=== PATIENT | female | born 1945 | race Caucasian/White ===

== ENCOUNTER 2022-11-18 17:06 | Inpatient (IN) ==
[2022-11-18] MEDS ORDERED: SODIUM CHLORIDE 0.9% 500 ML IV STA (18:14)
[2022-11-18 18:40] LABS: Basophils # 0.1 10*3/uL (0.0-0.2); Basophils % 0.9 % (0.0-0.8); Eosinophils % 0.2 % (0.00-10.9); Hematocrit 40.5 VOL% (35.7-47.0); Hemoglobin 13.4 GM/DL (12.0-16.0); Immature Granulocytes % 0.5 %; Immature Granulocytes Absolute 0.05 #; Lymphocytes # 1.2 10*3/uL (1.4-4.0); Lymphocytes % 12.3 % (21.3-54.2); Mean Corpuscular HGB Conc 33.1 GM/DL (32-36); Mean Corpuscular Volume 82.5 FL (87-102); Mean Platelet Volume 11.7 FL (9.6-12.0); Monocytes # 1.5 10*3/uL (0.11-0.8); Monocytes % 14.9 % (1.7-12.7); Neutrophils % 71.2 % (38.7-73.9); Platelet Count 253 T/CUMM (130-400); Red Blood Count 4.91 MC/CUMM (3.8-5.5); Red Cell Distribution Width 16.1 % (9.3-17.3); White Blood Count 9.7 T/CUMM (4-12)
[2022-11-18 18:47] LABS: INR 1.1; PT Patient Result 12.4 SECS (10.1-12.1)
[2022-11-18 18:57] LABS: Alanine Aminotransferase 45 U/L (13-56); Albumin 3.9 G/DL (3.4-5.0); Alkaline Phosphatase 109 U/L (45-117); Aspartate Amino Transferase 90 U/L (0-37); Bilirubin,Total < 0.39 MG/DL (0.20-1.00); Blood Urea Nitrogen 15 MG/DL (7-18); Calcium 9.1 MG/DL (8.5-10.1); Carbon Dioxide 22 MMOL/L (21-32); Chloride 101 MMOL/L (98-107); Glucose 134 MG/DL (74-106); Osmolality,Calculated 272.1 MOS/KG (273-304); Potassium 3.5 MMOL/L (3.5-5.1); Sodium 135 MMOL/L (136-145); Total Protein 7.6 G/DL (6.4-8.2)
[2022-11-18 19:00] LABS: Glucose,Urine (UA) Negative (Negative); Ketones,Urine Negative (Negative); Nitrite,Urine Negative (Negative); Protein,Urine 100 mg/dL (Negative); Urine Appearance Clear (Clear); Urine Color Yellow (Yellow); Urine pH 6.5 (4.5-8.0)
[2022-11-18 19:01] LABS: Bilirubin,Urine Negative (Negative); Blood, Urine Trace mg/dL (Negative); Urine Urobilinogen 0.2 eU/dL (<2.0)
[2022-11-18 19:02] LABS: Mucus,Urine Occasional /LPF (Occasional); RBC,Urine 1 /HPF (0-4); Squamous Epithelial Cell,Urine Occasional /HPF (0-10)
[2022-11-18 19:18] LABS: Barbiturates Screen,Urine Negative (Negative); Benzodiazepines Screen,Urine Negative (Negative); Cannabinoid Screen,Urine Negative (Negative); Opiate Screen,Urine Negative (Negative); Phencyclidine Screen,Urine Negative (Negative)
[2022-11-18 19:48] LABS: Sedimentation Rate-Westergren 67 MM/HR (0-30)
[2022-11-18] MEDS ORDERED: METOPROLOL TARTRATE 5 MG/5 ML VIAL IV STA (19:57)
[2022-11-18] MEDS ORDERED: ONDANSETRON 4 MG/2 ML VIAL IV PRN (20:22)
[2022-11-18] MEDS ORDERED: ASPIRIN 325 MG TABLET PO STA (20:22)
[2022-11-18] MEDS ORDERED: hydrALAZINE 20 MG/1 ML VIAL IV PRN (20:22)
[2022-11-18] MEDS ORDERED: SODIUM CHLORIDE 0.9% 1,000 ML IV SCH (20:30)
[2022-11-18 22:14] LABS: ABG Base Excess -0.2 MMOL/L (-2.5-2.5); ABG HCO3 24.2 MMOL/L (20-26); ABG Oxygen Saturation 93.7 % (95-100); ABG PCO2 33.6 MM HG (35-48); ABG PH 7.446 (7.35-7.45); ABG PO2 68.1 MM HG (80-95); ABG TCO2 19.9 MMOL/L (23-27)
[2022-11-19] MEDS: cefTRIAXone 1,000 MG in SODIUM CHLORIDE 0.9% 100 ML IV SCH ×2 (01:22→22:51)
[2022-11-19] MEDS: DOXYCYCLINE HYCLATE INJ 100 MG in SODIUM CHLORIDE 0.9% 100 ML IV SCH ×3 (01:23→22:47)
[2022-11-19 05:27] LABS: Basophils # 0.1 10*3/uL (0.0-0.2); Eosinophils % 0.1 % (0.00-10.9); Hematocrit 40.6 VOL% (35.7-47.0); Hemoglobin 12.8 GM/DL (12.0-16.0); Immature Granulocytes % 0.5 %; Immature Granulocytes Absolute 0.04 #; Lymphocytes # 2.1 10*3/uL (1.4-4.0); Lymphocytes % 24.6 % (21.3-54.2); Mean Corpuscular HGB Conc 31.5 GM/DL (32-36); Mean Corpuscular Volume 85.3 FL (87-102); Mean Platelet Volume 11.2 FL (9.6-12.0); Monocytes # 1.7 10*3/uL (0.11-0.8); Monocytes % 19.7 % (1.7-12.7); Neutrophils % 54.1 % (38.7-73.9); Platelet Count 245 T/CUMM (130-400); Red Blood Count 4.76 MC/CUMM (3.8-5.5); Red Cell Distribution Width 16.6 % (9.3-17.3); White Blood Count 8.6 T/CUMM (4-12)
[2022-11-19 06:01] LABS: Lymphocytes 27 % (20-55); Nucleated Red Blood Cells 2 /100 WBC (0-5); Platelet Estimate Normal; Total Cells Counted 100
[2022-11-19 06:10] LABS: Alanine Aminotransferase 43 U/L (13-56); Albumin 3.4 G/DL (3.4-5.0); Alkaline Phosphatase 94 U/L (45-117); Aspartate Amino Transferase 80 U/L (0-37); Bilirubin,Total < 0.39 MG/DL (0.20-1.00); Blood Urea Nitrogen 16 MG/DL (7-18); Calcium 8.9 MG/DL (8.5-10.1); Carbon Dioxide 22 MMOL/L (21-32); Chloride 103 MMOL/L (98-107); Glucose 89 MG/DL (74-106); Osmolality,Calculated 272.8 MOS/KG (273-304); Potassium 3.1 MMOL/L (3.5-5.1); Sodium 137 MMOL/L (136-145); Total Protein 7.8 G/DL (6.4-8.2)
[2022-11-19] MEDS ORDERED: POTASSIUM CHLORIDE 20 MEQ TABLET PO ONE ×3 (06:29→12:00)
[2022-11-19] MEDS: ACETAMINOPHEN 325 MG TABLET PO PRN (08:18)
[2022-11-19] MEDS: CHOLECALCIFEROL 1,000 UNIT TABLET PO SCH (08:20)
[2022-11-19] MEDS: LEVOTHYROXINE 50 MCG TABLET PO SCH (08:20)
[2022-11-19] MEDS: PANTOPRAZOLE 40 MG TABLET PO SCH (08:20)
[2022-11-19] MEDS: AMITRIPTYLINE 25 MG TABLET PO SCH ×2 (08:27→21:35)
[2022-11-19] MEDS: allopurinoL 100 MG TABLET PO SCH ×2 (08:27→21:35)
[2022-11-19] MEDS: MULTIVITAMIN (BEROCCA) TABLET PO SCH (08:28)
[2022-11-19] MEDS: ENOXAPARIN 40 MG/0.4 ML SYRINGE SUBCUT SCH (08:28)
[2022-11-19] MEDS ORDERED: amLODIPine 5 MG TABLET PO SCH (09:00)
[2022-11-19] MEDS ORDERED: ACETAMINOPHEN 325 MG TABLET PO ONE (18:06)
[2022-11-19] MEDS: DOCUSATE SODIUM 100 MG CAPSULE PO SCH (21:35)
[2022-11-19] MEDS: ASPIRIN EC 81 MG TABLET PO SCH (21:35)
[2022-11-19] MEDS: POTASSIUM CHLORIDE 10 MEQ TABLET PO SCH (21:35)
[2022-11-19] MEDS: ROSUVASTATIN 20 MG TABLET PO SCH (21:35)
[2022-11-20] MEDS: LEVOTHYROXINE 50 MCG TABLET PO SCH (06:18)
[2022-11-20] MEDS ORDERED: SODIUM CHLORIDE 0.9% 500 ML IV ONE (07:22)
[2022-11-20 08:30] LABS: Basophils # 0.1 10*3/uL (0.0-0.2); Basophils % 1.1 % (0.0-0.8); Eosinophils # 0.1 10*3/uL (0.0-0.87); Eosinophils % 0.6 % (0.00-10.9); Hematocrit 40.1 VOL% (35.7-47.0); Hemoglobin 12.8 GM/DL (12.0-16.0); Immature Granulocytes % 0.3 %; Immature Granulocytes Absolute 0.02 #; Lymphocytes # 2.1 10*3/uL (1.4-4.0); Lymphocytes % 26.7 % (21.3-54.2); Mean Corpuscular HGB Conc 31.9 GM/DL (32-36); Mean Corpuscular Volume 85.5 FL (87-102); Mean Platelet Volume 11.2 FL (9.6-12.0); Monocytes # 0.9 10*3/uL (0.11-0.8); Monocytes % 10.9 % (1.7-12.7); Neutrophils % 60.4 % (38.7-73.9); Platelet Count 183 T/CUMM (130-400); Red Blood Count 4.69 MC/CUMM (3.8-5.5); Red Cell Distribution Width 17.1 % (9.3-17.3); White Blood Count 7.97 T/CUMM (4-12)
[2022-11-20] MEDS: ENOXAPARIN 40 MG/0.4 ML SYRINGE SUBCUT SCH (08:46)
[2022-11-20] MEDS: CHOLECALCIFEROL 1,000 UNIT TABLET PO SCH (08:48)
[2022-11-20] MEDS: PANTOPRAZOLE 40 MG TABLET PO SCH (08:48)
[2022-11-20] MEDS: MULTIVITAMIN (BEROCCA) TABLET PO SCH (08:48)
[2022-11-20] MEDS: AMITRIPTYLINE 25 MG TABLET PO SCH ×2 (08:48→22:48)
[2022-11-20] MEDS: allopurinoL 100 MG TABLET PO SCH ×2 (08:48→22:48)
[2022-11-20 08:59] LABS: Alanine Aminotransferase 47 U/L (13-56); Albumin 3.4 G/DL (3.4-5.0); Alkaline Phosphatase 87 U/L (45-117); Aspartate Amino Transferase 72 U/L (0-37); Bilirubin,Total < 0.39 MG/DL (0.20-1.00); Blood Urea Nitrogen 13 MG/DL (7-18); Carbon Dioxide 22 MMOL/L (21-32); Chloride 106 MMOL/L (98-107); Glucose 123 MG/DL (74-106); Osmolality,Calculated 275.7 MOS/KG (273-304); Potassium 3.4 MMOL/L (3.5-5.1); Sodium 138 MMOL/L (136-145); Total Protein 7.5 G/DL (6.4-8.2)
[2022-11-20] MEDS ORDERED: POTASSIUM CHLORIDE 20 MEQ TABLET PO ONE (10:45)
[2022-11-20] MEDS: DOXYCYCLINE HYCLATE INJ 100 MG in SODIUM CHLORIDE 0.9% 100 ML IV SCH ×2 (13:16→22:56)
[2022-11-20] MEDS: POTASSIUM CHLORIDE 10 MEQ TABLET PO SCH (22:48)
[2022-11-20] MEDS: ROSUVASTATIN 20 MG TABLET PO SCH (22:48)
[2022-11-20] MEDS: ASPIRIN EC 81 MG TABLET PO SCH (22:48)
[2022-11-20] MEDS: DOCUSATE SODIUM 100 MG CAPSULE PO SCH (22:49)
[2022-11-20] MEDS: cefTRIAXone 1,000 MG in SODIUM CHLORIDE 0.9% 100 ML IV SCH (22:54)
[2022-11-21] MEDS: LEVOTHYROXINE 50 MCG TABLET PO SCH (05:33)
[2022-11-21 06:42] LABS: Basophils % 0.5 % (0.0-0.8); Eosinophils # 0.1 10*3/uL (0.0-0.87); Eosinophils % 1.1 % (0.00-10.9); Hematocrit 36.9 VOL% (35.7-47.0); Hemoglobin 12.1 GM/DL (12.0-16.0); Immature Granulocytes % 0.3 %; Immature Granulocytes Absolute 0.02 #; Lymphocytes # 2.6 10*3/uL (1.4-4.0); Lymphocytes % 38.9 % (21.3-54.2); Mean Corpuscular HGB Conc 32.8 GM/DL (32-36); Mean Corpuscular Volume 84.2 FL (87-102); Mean Platelet Volume 11.3 FL (9.6-12.0); Monocytes # 0.8 10*3/uL (0.11-0.8); Monocytes % 11.5 % (1.7-12.7); Neutrophils % 47.7 % (38.7-73.9); Platelet Count 160 T/CUMM (130-400); Red Blood Count 4.38 MC/CUMM (3.8-5.5); Red Cell Distribution Width 16.5 % (9.3-17.3)
[2022-11-21 07:09] LABS: Alanine Aminotransferase 37 U/L (13-56); Alkaline Phosphatase 80 U/L (45-117); Aspartate Amino Transferase 48 U/L (0-37); Bilirubin,Total < 0.39 MG/DL (0.20-1.00); Blood Urea Nitrogen 12 MG/DL (7-18); Calcium 8.8 MG/DL (8.5-10.1); Carbon Dioxide 22 MMOL/L (21-32); Chloride 104 MMOL/L (98-107); Glucose 88 MG/DL (74-106); Osmolality,Calculated 273.7 MOS/KG (273-304); Potassium 3.7 MMOL/L (3.5-5.1); Sodium 138 MMOL/L (136-145); Total Protein 6.9 G/DL (6.4-8.2)
[2022-11-21] MEDS: allopurinoL 100 MG TABLET PO SCH ×2 (08:13→21:04)
[2022-11-21] MEDS: PANTOPRAZOLE 40 MG TABLET PO SCH (08:14)
[2022-11-21] MEDS: MULTIVITAMIN (BEROCCA) TABLET PO SCH (08:14)
[2022-11-21] MEDS: CHOLECALCIFEROL 1,000 UNIT TABLET PO SCH (08:14)
[2022-11-21] MEDS: ENOXAPARIN 40 MG/0.4 ML SYRINGE SUBCUT SCH (08:14)
[2022-11-21] MEDS: AMITRIPTYLINE 25 MG TABLET PO SCH (08:14)
[2022-11-21] MEDS: DOXYCYCLINE HYCLATE INJ 100 MG in SODIUM CHLORIDE 0.9% 100 ML IV SCH (11:23)
[2022-11-21] MEDS: POTASSIUM CHLORIDE 10 MEQ TABLET PO SCH (21:04)
[2022-11-21] MEDS: ASPIRIN EC 81 MG TABLET PO SCH (21:04)
[2022-11-21] MEDS: ROSUVASTATIN 20 MG TABLET PO SCH (21:04)
[2022-11-21] MEDS: DOCUSATE SODIUM 100 MG CAPSULE PO SCH (21:04)
[2022-11-21] MEDS: guaiFENesin 200 MG/10 ML UDCUP PO PRN (21:05)
[2022-11-22] MEDS: cefTRIAXone 1,000 MG in SODIUM CHLORIDE 0.9% 100 ML IV SCH ×2 (01:03→04:33)
[2022-11-22] MEDS: DOXYCYCLINE HYCLATE INJ 100 MG in SODIUM CHLORIDE 0.9% 100 ML IV SCH ×2 (01:03→04:33)
[2022-11-22 05:06] LABS: Basophils # 0.1 10*3/uL (0.0-0.2); Basophils % 0.8 % (0.0-0.8); Eosinophils # 0.1 10*3/uL (0.0-0.87); Eosinophils % 1.9 % (0.00-10.9); Hematocrit 36.3 VOL% (35.7-47.0); Hemoglobin 11.7 GM/DL (12.0-16.0); Immature Granulocytes % 0.4 %; Immature Granulocytes Absolute 0.03 #; Lymphocytes # 2.5 10*3/uL (1.4-4.0); Lymphocytes % 32.8 % (21.3-54.2); Mean Corpuscular HGB Conc 32.2 GM/DL (32-36); Mean Corpuscular Volume 83.3 FL (87-102); Monocytes # 0.9 10*3/uL (0.11-0.8); Monocytes % 11.7 % (1.7-12.7); Neutrophils % 52.4 % (38.7-73.9); Platelet Count 251 T/CUMM (130-400); Red Blood Count 4.36 MC/CUMM (3.8-5.5); Red Cell Distribution Width 16.4 % (9.3-17.3); White Blood Count 7.54 T/CUMM (4-12)
[2022-11-22 05:26] LABS: Calcium 8.9 MG/DL (8.5-10.1); Osmolality,Calculated 274.7 MOS/KG (273-304); Potassium 3.6 MMOL/L (3.5-5.1)
[2022-11-22 05:32] LABS: Alanine Aminotransferase 36 U/L (13-56); Albumin 3.1 G/DL (3.4-5.0); Alkaline Phosphatase 74 U/L (45-117); Aspartate Amino Transferase 41 U/L (0-37); Bilirubin,Total < 0.39 MG/DL (0.20-1.00); Blood Urea Nitrogen 12 MG/DL (7-18); Calcium 8.6 MG/DL (8.5-10.1); Carbon Dioxide 23 MMOL/L (21-32); Chloride 106 MMOL/L (98-107); Glucose 106 MG/DL (74-106); Osmolality,Calculated 276.5 MOS/KG (273-304); Potassium 3.7 MMOL/L (3.5-5.1); Sodium 139 MMOL/L (136-145); Total Protein 6.9 G/DL (6.4-8.2)
[2022-11-22] MEDS: LEVOTHYROXINE 50 MCG TABLET PO SCH (06:30)
[2022-11-22] MEDS: guaiFENesin 200 MG/10 ML UDCUP PO PRN (06:30)
[2022-11-22] MEDS ORDERED: FLUDROCORTISONE 0.1 MG TABLET PO SCH (09:00)
[2022-11-22] MEDS: CHOLECALCIFEROL 1,000 UNIT TABLET PO SCH (09:11)
[2022-11-22] MEDS: MULTIVITAMIN (BEROCCA) TABLET PO SCH (09:11)
[2022-11-22] MEDS: FLUDROCORTISONE 0.1 MG TABLET PO SCH (09:11)
[2022-11-22] MEDS: ENOXAPARIN 40 MG/0.4 ML SYRINGE SUBCUT SCH (09:12)
[2022-11-22] MEDS: allopurinoL 100 MG TABLET PO SCH ×2 (09:12→20:48)
[2022-11-22] MEDS: PANTOPRAZOLE 40 MG TABLET PO SCH (09:12)
[2022-11-22] MEDS: ACETAMINOPHEN 325 MG TABLET PO PRN (17:14)
[2022-11-22] MEDS: ROSUVASTATIN 20 MG TABLET PO SCH (20:47)
[2022-11-22] MEDS: ASPIRIN EC 81 MG TABLET PO SCH (20:48)
[2022-11-22] MEDS: DOCUSATE SODIUM 100 MG CAPSULE PO SCH (20:49)
[2022-11-22] MEDS: POTASSIUM CHLORIDE 10 MEQ TABLET PO SCH (20:51)
[2022-11-23 04:21] LABS: Basophils # 0.1 10*3/uL (0.0-0.2); Basophils % 0.8 % (0.0-0.8); Eosinophils # 0.1 10*3/uL (0.0-0.87); Hematocrit 38.8 VOL% (35.7-47.0); Hemoglobin 12.6 GM/DL (12.0-16.0); Immature Granulocytes % 0.3 %; Immature Granulocytes Absolute 0.02 #; Lymphocytes # 2.1 10*3/uL (1.4-4.0); Lymphocytes % 34.8 % (21.3-54.2); Mean Corpuscular HGB Conc 32.5 GM/DL (32-36); Mean Corpuscular Volume 83.4 FL (87-102); Mean Platelet Volume 11.1 FL (9.6-12.0); Monocytes # 0.8 10*3/uL (0.11-0.8); Monocytes % 12.2 % (1.7-12.7); Neutrophils % 49.9 % (38.7-73.9); Platelet Count 145 T/CUMM (130-400); Red Blood Count 4.65 MC/CUMM (3.8-5.5); Red Cell Distribution Width 16.6 % (9.3-17.3); White Blood Count 6.15 T/CUMM (4-12)
[2022-11-23 04:29] LABS: Calcium 9.2 MG/DL (8.5-10.1); Osmolality,Calculated 279.4 MOS/KG (273-304); Potassium 3.7 MMOL/L (3.5-5.1)
[2022-11-23 04:31] LABS: Alanine Aminotransferase 39 U/L (13-56); Albumin 3.1 G/DL (3.4-5.0); Alkaline Phosphatase 83 U/L (45-117); Aspartate Amino Transferase 44 U/L (0-37); Bilirubin,Total < 0.39 MG/DL (0.20-1.00); Blood Urea Nitrogen 13 MG/DL (7-18); Calcium 9.1 MG/DL (8.5-10.1); Carbon Dioxide 25 MMOL/L (21-32); Chloride 106 MMOL/L (98-107); Glucose 97 MG/DL (74-106); Osmolality,Calculated 276.5 MOS/KG (273-304); Potassium 3.8 MMOL/L (3.5-5.1); Sodium 139 MMOL/L (136-145); Total Protein 7.1 G/DL (6.4-8.2)
[2022-11-23] MEDS: LEVOTHYROXINE 50 MCG TABLET PO SCH (06:01)
[2022-11-23] MEDS: guaiFENesin 200 MG/10 ML UDCUP PO PRN (06:02)
[2022-11-23 07:16] VITALS: BP 95/52
[2022-11-23] MEDS: ENOXAPARIN 40 MG/0.4 ML SYRINGE SUBCUT SCH (08:28)
[2022-11-23] MEDS: allopurinoL 100 MG TABLET PO SCH (08:29)
[2022-11-23] MEDS: FLUDROCORTISONE 0.1 MG TABLET PO SCH (08:29)
[2022-11-23] MEDS: MULTIVITAMIN (BEROCCA) TABLET PO SCH (08:29)
[2022-11-23] MEDS: CHOLECALCIFEROL 1,000 UNIT TABLET PO SCH (08:30)
[2022-11-23] MEDS: PANTOPRAZOLE 40 MG TABLET PO SCH (08:30)
== END 2022-11-23 11:10 | disposition home or self-care (01) | DRG 866 ==
LOC: EDUNIT# → EDBD → N.EDINP 17:06 → N.ED 17:06 → SUATTDRO 20:22 → N.2W 22:37
PROVIDERS: ADMIT Family Medicine; ATTEND Internal Medicine